=== PATIENT | female | born 1995 ===

== ENCOUNTER 2022-06-16 06:23 | Emergency (ER) | payer OTHER, SELFPAY ==
--- NOTE | ~2022-06-16 | CT_ITS ---
EXAMINATION: CT HEAD WITHOUT CONTRAST CLINICAL INFORMATION: Headache. COMPARISON: None. TECHNIQUE: Contiguous axial imaging was performed from the skull base to vertex without intravenous administration of contrast. This CT examination was performed using dose optimization techniques as appropriate, variously including the following: *Automated exposure control *Adjustment of mA and/or kV according to patient size (this includes techniques or standardized protocols for targeted exams where dose is matched to indication/reason for exam; i.e. extremities or head) *Use of iterative reconstruction technique DLP: 713 mGy-cm FINDINGS: There is no evidence of acute intracranial hemorrhage or edematous territorial infarction. There is no abnormal attenuation within the brain parenchyma. Mederos-white matter differentiation is preserved. The ventricles are normal in size and configuration. No evidence for obstructive hydrocephalus. No abnormal mass effect or midline shift. No extra-axial fluid collections. No acute soft tissue or osseous abnormalities. Near complete opacification of several of the paranasal sinuses with admixed hyperattenuating content, more noticeable in the left maxillary sinus, potentially representing dehydrated mucus secretion or fungal hyphae. The mastoids and middle ear cavities are clear. CT/CT head/brain wo IV con IMPRESSION: 1. No evidence of acute intracranial hemorrhage or edematous territorial infarction. 2. Extensive paranasal sinus disease.
[2022-06-16 06:46] VITALS: BP 132/88; PULSE 99; RESP 16; TEMP 37.2; O2SAT 99; BMI 43.9
--- NOTE | 2022-06-16 07:24 | ED.HA ---
HPI - Headache General Chief Complaint: Headache Stated Complaint: Headache Time Seen by Provider: 06/16/22 07:03 Source: patient Mode of arrival: ambulatory Limitations: no limitations History of Present Illness MD elicited complaint: headache Onset (ago): week(s) (2) Onset description: gradually Location: left and band-like Severity: moderate Quality & Timing: throbbing, constant and progressively worsening Exacerbating factors: movement of head/neck and other (leaning forward) Relieving factors: nothing Context: other (started after URI and sinus infection that she treated with claritin) Associated symptoms: nausea, photophobia and other (facial pain) Treatments prior to arrival: acetaminophen Related Data Previous Rx's Medication Instructions Recorded amoxicillin 875 mg-potassium 1 tab PO BID #14 tabs 06/16/22 clavulanate 125 mg tablet prednisone 20 mg tablet 40 mg PO DAILY 5 days #10 tabs 06/16/22 Allergies Allergy/AdvReac Type Severity Reaction Status Date / Time sulfamethoxazole Allergy Unknown Verified 06/16/22 06:36 [From Bactrim] trimethoprim [From Bactrim] Allergy Unknown Verified 06/16/22 06:36 Review of Systems Review of Systems: Constitutional : No Fever, No Chills, No Fatigue ENT/Mouth : No sore throat, No Rhinorrhea Eyes: No Eye Pain, No Swelling, No Redness Cardiovascular : No Chest Pain, No SOB, No Dyspnea on Exertion Respiratory : No Cough, No Sputum Gastrointestinal : pos Nausea, No Vomiting, No Diarrhea, No abdominal Pain Genitourinary : No Dysuria, No Urinary Frequency, No Hematuria, Musculoskeletal : No joint pain, No Myalgias, No Joint Swelling Skin : No Skin Lesions, No rash Neuro : No Weakness, No Numbness, No Dizziness, positive Headache Psych : No Anxiety/Panic, No Depression Heme/Lymph: No Bruising, No Bleeding,No Lymphadenopathy Endocrine : No Polyuria, No Polydipsia All other systems reviewed and are negative [facility] Past Medical History Attestation statement: The following information was validated with the patient. Medical History No pertinent past medical history Social History Social History (Updated 06/16/22 @ 07:26 by Alysa Mckeon DO) Patient Tobacco Use Status: Never used Tobacco Advance Directives: No Advance Directives Information Provided: No Physical Exam Vital Signs: Vital Signs: Last Vital Signs Temp 98.9 F 06/16/22 06:46 Pulse 90 06/16/22 07:27 Resp 18 06/16/22 07:27 BP 104/70 06/16/22 07:27 Pulse Ox 99 06/16/22 07:27 O2 Del Method 06/16/22 07:27 BMI result Body Mass Index 43.9 Appearance: Alert. Oriented X3. No acute distress. Eyes: Pupils equal, round and reactive to light. ENT: Pharynx normal. Neck: Normal inspection. Neck supple. no meningeal signs CVS: Normal heart rate and rhythm. Pulses normal. Respiratory: No respiratory distress. Breath sounds normal. Abdomen: Soft and nontender. Skin: Skin warm and dry. Normal skin color. Normal skin turgor. Extremities: No lower extremity edema. No calf ttp Neuro: Oriented X 3. No motor deficit. No sensory deficit. 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 No meningeal signs, no fevers, not toxic, gradual onset doubt [facility], [employer] infection - at this time will obtain CT head for mass / sinusitis, PO medications if signs of infection will need abx course Discharge Plan Discharge Clinical Impression: Sinusitis Qualifiers: Sinusitis location: pansinusitis Chronicity: acute Recurrence: non-recurrent Qualified Code(s): J01.40 - Acute pansinusitis, unspecified Patient Disposition: Home, Self-Care Instructions: Sinusitis (ED) Additional Instructions: return to ED for any worsening symptoms or concerns CT scan shows diffuse sinus disease - if not better after this course of antibiotics you need to see your primary care doctor and get ENT referral Prescriptions: New prednisone 20 mg tablet 40 mg PO DAILY 5 Days Qty: 10 0RF amoxicillin-pot clavulanate 875-125 mg tablet 1 tab PO BID Qty: 14 0RF Stand Alone Forms: Work/School Release Interventions: ED Discharge Assessment Last Done: 06/16/22 08:58 Discharge Date/Time: 06/16/22 09:03
[2022-06-16 07:27] VITALS: BP 104/70; PULSE 90; RESP 18; O2SAT 99
[2022-06-16] MEDS: Cyclobenzaprine HCl 10 MG TABLET PO (07:35)
[2022-06-16] MEDS: Ketorolac Tromethamine 30 MG/ML VIAL IM (07:35)
[2022-06-16] MEDS: Butalb/Acetamin/Caff 50/325/40 TABLET 1 TAB PO (07:35)
== END 2022-06-16 09:03 | disposition home or self-care (01) ==
PROVIDERS: Emergency Provider Emergency Medicine
DX: J01.40 Acute pansinusitis, unspecified (principal); R51.9 Headache, unspecified
CPT/HCPCS: 70450; 96372; 99284; J1885

== ENCOUNTER 2022-09-27 09:51 | Emergency (ER) | payer OTHER, SELFPAY ==
--- NOTE | ~2022-09-27 | XR_ITS ---
EXAMINATION: X-RAY RIGHT KNEE X-RAY RIGHT ANKLE CLINICAL INFORMATION: Fall, pain COMPARISON: None TECHNIQUE: Right knee 4 views. Right ankle 3 views. FINDINGS: Right knee: Normal alignment. Joint spaces are maintained. No visible acute fracture or dislocation. Question small suprapatellar joint fluid. Right ankle: Lateral malleolar soft tissue swelling. No acute fracture or dislocation is seen. Ankle mortise is asymmetric, could be related to positioning/technique. Talar dome appears intact. Anterior calcaneal process, fifth metatarsal base appears intact. Moderate plantar and posterior calcaneal spurring. XR/XR ankle RT 2V IMPRESSION: Right knee: No radiographic evidence of acute fracture or dislocation. Question small suprapatellar joint fluid. Right ankle: No radiographically evident acute fracture or dislocation. Recommend short-term follow-up radiographs for reassessment if there are persistent symptoms/clinical concern.
--- NOTE | ~2022-09-27 | XR_ITS ---
EXAMINATION: X-RAY RIGHT KNEE X-RAY RIGHT ANKLE CLINICAL INFORMATION: Fall, pain COMPARISON: None TECHNIQUE: Right knee 4 views. Right ankle 3 views. FINDINGS: Right knee: Normal alignment. Joint spaces are maintained. No visible acute fracture or dislocation. Question small suprapatellar joint fluid. Right ankle: Lateral malleolar soft tissue swelling. No acute fracture or dislocation is seen. Ankle mortise is asymmetric, could be related to positioning/technique. Talar dome appears intact. Anterior calcaneal process, fifth metatarsal base appears intact. Moderate plantar and posterior calcaneal spurring. XR/XR knee LT 2V IMPRESSION: Right knee: No radiographic evidence of acute fracture or dislocation. Question small suprapatellar joint fluid. Right ankle: No radiographically evident acute fracture or dislocation. Recommend short-term follow-up radiographs for reassessment if there are persistent symptoms/clinical concern.
[2022-09-27 10:32] VITALS: BP 139/79; PULSE 100; RESP 20; TEMP 36.1; O2SAT 99; BMI 43.9
--- NOTE | 2022-09-27 11:59 | ED.FALL ---
HPI - Fall General Chief Complaint: Fall Stated Complaint: R ankle pain/L knee pain from Fall Time Seen by Provider: 09/27/22 11:30 Source: patient Mode of arrival: ambulatory History of Present Illness HPI Narrative: 27-year-old female with no significant past medical history presents to the ED complaining of left knee pain/abrasion s/p trip and fall on curb last week. Also reports right ankle pain and swelling s/p tripping while walking up the stairs on 09/25. Denies head trauma or LOC during either instant. Denies symptoms prior to fall including headache/lightheadedness/CP/SOB. Denies fever, chills, numbness/tingling MD complaint: fall Onset (ago): day(s) Related Data Previous Rx's Medication Instructions Recorded amoxicillin 875 mg-potassium 1 tab PO BID #14 tabs 06/16/22 clavulanate 125 mg tablet prednisone 20 mg tablet 40 mg PO DAILY 5 days #10 tabs 06/16/22 bacitracin 500 unit/gram topical 1 appl topical BID #30 grams 09/27/22 ointment Allergies Allergy/AdvReac Type Severity Reaction Status Date / Time sulfamethoxazole Allergy Unknown Verified 06/16/22 06:36 [From Bactrim] trimethoprim [From Bactrim] Allergy Unknown Verified 06/16/22 06:36 Review of Systems Review of Systems: Constitutional: No Fever, No Chills ENT/Mouth: No Ear Pain, No Nasal Congestion, No sore throat, No Rhinorrhea, No Swallowing Difficulty Cardiovascular: No Chest Pain, No SOB Respiratory: No Cough, No Sputum, No Wheezing Gastrointestinal: No Nausea, No Vomiting, No Diarrhea, No Constipation, No Abdominal pain Genitourinary: No Dysuria, No Urinary Frequency, No Hematuria, No Flank Pain Musculoskeletal: + joint pain, No Myalgias, + Joint Swelling Skin: + Skin Lesions, No rash Neuro: No Weakness, No Numbness, No Paresthesias Yes all other systems are reviewed and are negative Constitutional: Constitutional: Reports as per [facility] Past Medical History Attestation statement: The following information was validated with the patient. Medical History No pertinent past medical history Social History Social History Patient Tobacco Use Status: Never used Tobacco Advance Directives: No Advance Directives Information Provided: No Physical Exam Vital Signs: Vital Signs: Last Vital Signs Temp 97.0 F 09/27/22 10:32 Pulse 100 09/27/22 10:32 Resp 20 09/27/22 10:32 BP 139/79 09/27/22 10:32 Pulse Ox 99 09/27/22 10:32 O2 Del Method 09/27/22 10:32 BMI result Body Mass Index 43.9 Const: General: cooperative, healthy appearing and no acute distress Orientation/consciousness: patient oriented x3 Limitations: no limitations HEENT: Head: Yes normal to inspection and Yes atraumatic Ears: hearing grossly normal bilaterally General nose exam: Normal external nose present Face and sinus: Yes normal facial exam Eyes: General: appearance normal, both eyes and all related structures EOM: EOMs intact bilaterally Neck: Neck: Yes normal visual inspection and Yes no meningeal signs Resp: Effort & Inspection: normal respiratory effort and no respiratory distress Cardio: Rate: regular rate Heart sounds: S1 normal heart sound present and S2 normal heart sound present Peripheral pulses: Peripheral pulses 2+ throughout Skin: Rashes: no rashes Wounds: no wounds Neuro: General: patient oriented x3, tone normal and no meningeal signs Gait exam (Neuro): Normal gait present Extrem: Other: Left knee with superficial abrasion. Bleeding controlled. No surrounding erythema, fluctuance or induration. Limited flexion of left knee 2/2 pain. Neurovascular intact distally Right ankle with mild swelling to lateral malleolus. Tender to palpation. Foot/tib fib/knee nontender. Limited dorsiflexion secondary to pain. Neurovascular intact Course Course Course Narrative: XR ankle RT 2V/XR knee LT 2V IMPRESSION: Right knee: No radiographic evidence of acute fracture or dislocation. Question small suprapatellar joint fluid. ? Right ankle: No radiographically evident acute fracture or dislocation. Recommend short-term follow-up radiographs for reassessment if there are persistent symptoms/clinical concern.? > patient placed in Brenden wrap to left knee and air cast right ankle and supplied with crutches -Results discussed with patient including worrisome signs and symptoms and strict return precautions, and when to return to the emergency department. They verbalized understanding and feel safe for discharge at this time. Medical Decision Making Medical Decision Making MDM Narrative: 27-year-old female with no significant past medical history presents to the ED complaining of left knee pain/abrasion s/p trip and fall on curb last week. Also reports right ankle pain and swelling s/p tripping while walking up the stairs on 09/25. On exam vital signs stable, NAD, nontoxic appearing, physical exam as above. Concern for fracture versus sprain. No evidence of infection. Plan: X-rays Differential Diagnosis Differential Diagnoses: The differential diagnosis associated with the presentation includes As above Discharge Plan Discharge Clinical Impression: Abrasion, Effusion of knee, Ankle sprain Patient Disposition: Home, Self-Care Instructions: Ankle Sprain (ED), Swollen Joint (ED) Additional Instructions: Your x-ray shows a small knee joint effusion, and swelling of her ankle however no fractures. Apply bacitracin or Neosporin to her scrape. Wear Brenden wrap /air cast at home as needed for comfort and stability Use crutches as needed, bear weight as tolerated. Ice and elevate. Follow up with her doctor Prescriptions: New bacitracin 500 unit/gram ointment 1 appl topical BID Qty: 30 0RF No Action prednisone 20 mg tablet 40 mg PO DAILY 5 Days Qty: 10 0RF amoxicillin-pot clavulanate 875-125 mg tablet 1 tab PO BID Qty: 14 0RF Referrals: Physician,Unknown J [Primary Care Provider] - Stand Alone Forms: Work/School Release
== END 2022-09-27 12:38 | disposition home or self-care (01) ==
PROVIDERS: Emergency Provider Emergency Medicine
DX: S93.401A Sprain of unspecified ligament of right ankle, initial encounter (principal); S80.212A Abrasion, left knee, initial encounter; W17.89XA Other fall from one level to another, initial encounter; M25.462 Effusion, left knee; Y93.9 Activity, unspecified; Y92.480 Sidewalk as the place of occurrence of the external cause; Y99.9 Unspecified external cause status
CPT/HCPCS: 73560; 73564; 73600; 99283

== ENCOUNTER 2023-03-07 15:55 | Emergency (ER) | payer OTHER, SELFPAY | END 2023-03-07 19:30 | disposition left against medical advice (07) | PROVIDERS: Emergency Provider Emergency Medicine | DX: R51.9 Headache, unspecified (principal); S49.90XA Unspecified injury of shoulder and upper arm, unspecified arm, initial encounter; X58.XXXA Exposure to other specified factors, initial encounter; Y93.9 Activity, unspecified; Y92.9 Unspecified place or not applicable; Y99.9 Unspecified external cause status ==